=== PATIENT | female | born 1965 | race Caucasian/White ===

== ENCOUNTER 2018-06-16 09:46 | Day surgery (SDC) | payer OTHER, BC ==
[2018-06-16] MEDS ORDERED: MIDAZOLAM 1 MG/ML 2 ML INJ ×2 (12:30)
[2018-06-16] MEDS ORDERED: FENTAnyl 50 MCG/ML VIAL (12:30)
== END 2018-06-16 13:05 | disposition home or self-care (01) ==
LOC: GIL 09:46
DX: R19.4 Change in bowel habit (principal); K21.9 Gastro-esophageal reflux disease without esophagitis; K29.60 Other gastritis without bleeding; I10 Essential (primary) hypertension; Z80.0 Family history of malignant neoplasm of digestive organs; K64.8 Other hemorrhoids; K57.30 Diverticulosis of large intestine without perforation or abscess without bleeding
CPT/HCPCS: 43239; 88305